=== PATIENT | female | born 1970 ===

== ENCOUNTER 2016-10-25 18:04 | Observation (INO) | payer OTHER ==
[2016-10-25 18:13] VITALS: TEMP 98.4; O2SAT 99
[2016-10-25] MEDS ORDERED: Sodium Chloride 0.9% 1,000 ML IV STA (18:39)
[2016-10-25] MEDS ORDERED: Iohexol 240 (50 ml) PO ONE (18:39)
[2016-10-25] MEDS ORDERED: Iohexol 240 (50 ml) ONE (18:52)
[2016-10-25 19:03] LABS: HEMATOCRIT 33.7 % (34.0-47.0); MEAN CORPUSCULAR HEMOGLOBIN 27.6 pg (27.0-31.0); MEAN CORPUSCULAR HGB CONC 33.6 g/dL (33.0-37.0); RED CELL DISTRIBUTION WIDTH 13.4 % (11.5-14.5); WHITE BLOOD COUNT 10.1 K/uL (4.8-10.8)
[2016-10-25 19:06] VITALS: BP 134/91; PULSE 85; RESP 18
--- NOTE | 2016-10-25 19:08 | ED PDOC ---
HPI: Abdomen Time Seen by Provider: 10/25/16 18:10 Chief Complaint (Nursing): Abdominal Pain Chief Complaint (Provider): Left sided abdominal pain, rectal bleeding History Per: Patient, Family (Daughter ) History/Exam Limitations: no limitations Onset/Duration Of Symptoms: Days Outside of [place] travel?: No Additional Complaint(s): Pt states she has been having rectal bleeding for about 2 weeks, bright red. Pt states she noticed her abdomen cramping and she thinks she is going to have diarrhea but only water comes out and it is bloody. Pt states that she has never had similar in the past. Pt asl reports feeling weak/tired recently. Past Medical History Reviewed: Historical Data, Nursing Documentation, Vital Signs Vital Signs: Last Vital Signs Temp 98.4 F 10/25/16 18:10 Pulse 91 H 10/25/16 18:10 Resp 16 10/25/16 18:10 BP 188/113 H 10/25/16 18:10 Pulse Ox 99 10/25/16 18:10 - Medical History PMH: HTN - Surgical History Surgical History: Appendectomy, Cholecystectomy - Family History Family History: States: No Known Family Hx - Living Arrangements Living Arrangements: With Family - Social History Current smoker - smoking cessation education provided: No - Allergies Allergies/Adverse Reactions: Allergies Allergy/AdvReac Type Severity Reaction Status Date / Time No Known Allergies Allergy Verified 10/25/16 18:12 Review of Systems ROS Statement: Except As Marked, All Systems Reviewed And Found Negative Gastrointestinal: Positive for: Abdominal Pain, Hematochezia. Negative for: Rectal Pain Physical Exam - Reviewed Nursing Documentation Reviewed: Yes Vital Signs Reviewed: Yes - Physical Exam Appears: Positive for: Well, Non-toxic, No Acute Distress Head Exam: Positive for: ATRAUMATIC, NORMAL INSPECTION, NORMOCEPHALIC Skin: Positive for: Normal Color, Warm, DRY Eye Exam: Positive for: Normal appearance ENT: Positive for: Normal ENT Inspection Neck: Positive for: Normal, Painless ROM Cardiovascular/Chest: Positive for: Regular Rate, Rhythm Respiratory: Positive for: CNT, Normal Breath Sounds Gastrointestinal/Abdominal: Positive for: Bowel Sounds, Soft, Tenderness (LLQ ) . Negative for: Normal Exam, Distended, Guarding Back: Positive for: Normal Inspection Rectal: Positive for: Normal Exam, Stool Is Heme: ((+)) Extremity: Positive for: Normal ROM Neurologic/Psych: Positive for: Alert, Oriented - ECG O2 Sat by Pulse Oximetry: 99 Pulse Ox Interpretation: Normal Medical Decision Making Medical Decision Making: Endorsed pending CT scan of the abdomen. Disposition - Clinical Impression Clinical Impression: Abdominal pain, Rectal hemorrhage - Patient ED Disposition Is Patient to be Admitted: Transfer of Care - Disposition Disposition: Transfer of Care Disposition Time: 20:00 Condition: STABLE
[2016-10-25 19:22] LABS: ALKALINE PHOSPHATASE 110 U/L (38-126); ALT/SGPT 29 U/L (9-52); AST/SGOT 52 U/L (14-36); BILIRUBIN,TOTAL 0.4 mg/dl (0.2-1.3); BLOOD UREA NITROGEN 12 mg/dl (7-17); CALCIUM 9.5 mg/dL (8.4-10.2); CARBON DIOXIDE 28 mmol/L (22-30); CHLORIDE 98 mmol/L (98-107); GFR AFRICAN-AMERICAN > 60; GLUCOSE,RANDOM 115 mg/dL (65-105); POTASSIUM 3.8 MMOL/L (3.6-5.0); SODIUM 141 mmol/l (132-148); TOTAL PROTEIN 8.2 G/DL (6.3-8.2)
--- NOTE | 2016-10-25 20:13 | ED PDOC ---
"- Laboratory Results Result Diagrams: 10/25/16 22:36 10/25/16 18:59 - ECG O2 Sat by Pulse Oximetry: 99 Pulse Ox Interpretation: Normal - Progress ED Course And Treament: Case was signed out to contract technical writer from [facility] pending CT abdomen and pelvis. Medical Decision Making Medical Decision Makin:00 pm: patient is awaiting CT. She has mild headache, PO tylenol was given, [address]: FINDINGS: Lower thorax: No pleural fluid collection, pneumothorax, or airspace consolidation in the imaged portion of the thorax. ABDOMEN: Liver: Diffuse fatty infiltration of the liver. Gallbladder and bile ducts: Status post cholecystectomy. No biliary ductal dilation. Pancreas: No acute findings. Spleen: No acute findings. Adrenals: No acute findings. Kidneys and ureters: No acute findings. DIANA YASHIRA | Preliminary Radiology Report EVENT PLANNING INTERN (QA) DISCREPANCY? If there is a discrepancy between the preliminary and final interpretation, please notify [employer] via [email or web address]. If you do not have access to our QA portal, call our QA team at [phone] CONFIDENTIALITY STATEMENT This report is intended only for the use of the referring physician, and only in accordance with law, If you received this in error, call [phone] Page 2 of 2 Stomach and bowel: No evident wall thickening or other acute abnormality of the stomach, small bowel, or colon. Moderate amount of stool in the right hemicolon. Colonic diverticulosis without evidence of acute diverticulitis. Appendix: Status post appendectomy. PELVIS: Bladder: Circumferential bladder wall thickening. The bladder is only mildly distended. Reproductive: No evident acute abnormality of the gynecologic structures. ABDOMEN and PELVIS: Intraperitoneal space: Mild, diffuse haziness of the mesenteric fat in the mid abdomen through mid pelvis. No free intraperitoneal fluid or air. Bones/joints: No acute findings. Soft tissues: Small, fat-containing umbilical hernia with no evident associated complications. Vasculature: No acute findings. No abdominal aortic aneurysm. Lymph nodes: Several borderline enlarged right lower quadrant mesenteric lymph nodes. IMPRESSION: 1. No etiology for the patient's rectal bleeding is identified. 2. 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 Follow up per institution protocol. 3. Circumferential bladder wall thickening be artifactual due to limited luminal distention but differential diagnosis also includes cystitis. 4. Non-acute findings as described above. Patient is aware of above findings. Orthostatics Supine: 150/86, HR 70 Standin/100, HR 72 CBC repeated, Hemoglobin is stable. Patient is aware of all diagnostic testing results, all questions answered. Patient now feels better. Case was d/w ED attending Dr. Jones who agrees patient is stable for discharge. Patient was instructed to drink lots of fluids and follow bland diet. She was referred to GI distribution dispatcher for follow up. Patient is aware she can RTED at any time if acutely worse. Disposition - Clinical Impression Clinical Impression: Abdominal pain, Rectal bleeding - POA Present On Arrival: None - Disposition Disposition: Routine/Home Disposition Time: 23:53 Condition: STABLE Results - Lab Results Lab Results: 10/25/16 18:59 WBC 10.1 RBC 4.11 Hgb 11.3 L Hct 33.7 L MCV 82.0 MCH 27.6 MCHC 33.6 RDW 13.4 Plt Count 336 Sodium 141 Potassium 3.8 Chloride 98 Carbon Dioxide 28 Anion Gap 18 BUN 12 Creatinine 0.5 L Est GFR ( Amer) > 60 Est GFR (Non-Af Amer) > 60 Random Glucose 115 H Calcium 9.5 Total Bilirubin 0.4 AST 52 H ALT 29 Alkaline Phosphatase 110 Total Protein 8.2 Albumin 4.1 Globulin 4.1 H Albumin/Globulin Ratio 1.0 Blood Type O POSITIVE Antibody Screen Negative BBK History Checked Patient has bt 10/25/16 10/25/16 22:36 18:59 WBC 9.6 10.1 RBC 3.98 4.11 Hgb 10.8 L 11.3 L Hct 32.7 L 33.7 L MCV 82.3 82.0 MCH 27.1 27.6 MCHC 33.0 33.6 RDW 13.5 13.4 Plt Count 304 336 Sodium 141 Potassium 3.8 Chloride 98 Carbon Dioxide 28 Anion Gap 18 BUN 12 Creatinine 0.5 L Est GFR ( Amer) > 60 Est GFR (Non-Af Amer) > 60 Random Glucose 115 H Calcium 9.5 Total Bilirubin 0.4 AST 52 H ALT 29 Alkaline Phosphatase 110 Total Protein 8.2 Albumin 4.1 Globulin 4.1 H Albumin/Globulin Ratio 1.0 Blood Type O POSITIVE Antibody Screen Negative BBK History Checked Patient has bt"
[2016-10-25] MEDS ORDERED: Iohexol 300 100 ML IJ ONE (21:04)
[2016-10-25] MEDS ORDERED: Sodium Chloride 0.9% 50 ML IV ONE (21:04)
[2016-10-25 22:52] LABS: HEMATOCRIT 32.7 % (34.0-47.0); MEAN CELL VOLUME 82.3 fl (81.0-99.0); MEAN CORPUSCULAR HEMOGLOBIN 27.1 pg (27.0-31.0); RED CELL DISTRIBUTION WIDTH 13.5 % (11.5-14.5); WHITE BLOOD COUNT 9.6 K/uL (4.8-10.8)
--- NOTE | 2016-10-26 08:33 | CT ---
PROCEDURE: CT Abdomen and Pelvis with contrast HISTORY: LLQ pain, rectal bleeding COMPARISON: None. TECHNIQUE: Contrast dose: Radiation dose: Total exam DLP = mGy-cm. This CT exam was performed using one or more of the following dose reduction techniques: Automated exposure control, adjustment of the mA and/or kV according to patient size, and/or use of iterative reconstruction technique. FINDINGS: LOWER THORAX: Unremarkable. LIVER: Fatty liver. GALLBLADDER AND BILE DUCTS: Cholecystectomy. PANCREAS: Unremarkable. No gross lesion or ductal dilatation. SPLEEN: Unremarkable. ADRENALS: Unremarkable. No mass. KIDNEYS AND URETERS: Unremarkable. No hydronephrosis. No solid mass. VASCULATURE: Unremarkable. No aortic aneurysm. BOWEL: Unremarkable. No obstruction. No gross mural thickening. APPENDIX: Normal appendix. PERITONEUM: Central mesenteric fat infiltration suspicious for mesenteric adenitis. LYMPH NODES: Unremarkable. No enlarged lymph nodes. BLADDER: Unremarkable. REPRODUCTIVE: Fluid in the endometrium. BONES: No acute fracture. OTHER FINDINGS: Fat containing left inguinal hernia.. IMPRESSION: Question mesenteric adenitis. Otherwise no acute pathology.
== END 2016-10-25 23:56 | disposition home or self-care (01) ==
LOC: H.ER 18:04 → H.EROBSV 19:09
PROVIDERS: ADMIT Emergency Medicine; ATTEND Emergency Medicine
DX: K62.5 Hemorrhage of anus and rectum (principal); R10.9 Unspecified abdominal pain